=== PATIENT | female | born 1995 | race Caucasian/White ===

== ENCOUNTER 2018-08-12 16:43 | Emergency (ER) | payer BC ==
--- NOTE | 2018-08-12 17:25 | EDM.PDOC ---
ED HPI GENERAL MEDICAL PROBLEM - General Chief Complaint: Genitourinary Problem Stated Complaint: BLADDER INFECTION? [id number] Time Seen by Provider: 08/12/18 17:25 Source of Information: Reports: Patient History Limitations: Reports: No Limitations - History of Present Illness INITIAL COMMENTS - FREE TEXT/NARRATIVE: Patient comes emergency department today with complaints of a bladder infection. She has had burning and bloody urine. She has had painful urination. No back pain. No flank pain. No fever no chills. No nausea no vomiting. She has had a frequent infection approximately 5 in the last 5-6 years. She has never had a urological evaluation. She does notice that she typically gets a urinary tract infection following the ending of her. - Related Data Allergies Allergy/AdvReac Type Severity Reaction Status Date / Time No Known Allergies Allergy Verified 08/12/18 16:59 Home Meds: Home Meds LORazepam 1 mg PO Q6HR PRN 08/12/18 [History] Nitrofurantoin Monohyd/M-Cryst [Macrobid 100 mg Capsule] 100 mg PO BID #5 capsule 08/12/18 [Rx] Patient's Own Medication [Ptom] 1 tab PO DAILY 08/12/18 [History] Phenazopyridine HCl [Pyridium] 100 mg PO TID #9 tablet 08/12/18 [Rx] Past Medical History Psychiatric History: Reports: Anxiety - Past Surgical History HEENT Surgical History: Reports: Other (See Below) Other HEENT Surgeries/Procedures: wisdom teeth removal Social & Family History - Family History Family Medical History: Noncontributory - Tobacco Use Smoking Status *Q: Never Smoker Second Hand Smoke Exposure: No - Caffeine Use Caffeine Use: Reports: Soda - Recreational Drug Use Recreational Drug Use: No ED ROS GENERAL - Review of Systems Review Of Systems: ROS reveals no pertinent complaints other than HPI. ED EXAM, GI/ABD - Physical Exam Exam: See Below Exam Limited By: No Limitations General Appearance: Alert, WD/WN, No Apparent Distress Neck: Normal Inspection, Supple Respiratory/Chest: No Respiratory Distress, Lungs Clear, No Accessory Muscle Use Cardiovascular: Normal Peripheral Pulses, Regular Rate, Rhythm GI/Abdominal Exam: Normal Bowel Sounds, Soft, Non-Tender Back Exam: No: CVA Tenderness (L), CVA Tenderness (R) Extremities: Normal Inspection, Normal Range of Motion, Normal Capillary Refill Neurological: Alert, Oriented, Normal Cognition, No Motor/Sensory Deficits Psychiatric: Normal Affect, Normal Mood Skin Exam: Warm, Dry, Normal Color, No Rash Course - Vital Signs Last Recorded V/S: Last Vital Signs Temp 36.5 C 08/12/18 16:56 Pulse 81 08/12/18 16:56 Resp 16 08/12/18 16:56 BP 120/79 08/12/18 16:56 Pulse Ox 99 08/12/18 16:56 - Orders/Labs/Meds Orders: Active Orders 24 hr Category Date Time Status CULTURE URINE [RM] Stat Lab 08/12/18 16:47 Received Labs: Laboratory Tests 08/12/18 Range/Units 16:47 Urine Color Yellow (YELLOW) Urine Appearance Cloudy (CLEAR) Urine pH 6.5 (5.0-9.0) Ur Specific [place] 1.025 (1.005-1.030) Urine Protein Negative (NEGATIVE) Urine Glucose (UA) Negative (NEGATIVE) Urine Ketones Negative (NEGATIVE) Urine Occult Blood Moderate H (NEGATIVE) Urine Nitrite Negative (NEGATIVE) Urine Bilirubin Negative (NEGATIVE) Urine Urobilinogen 0.2 (0.2-1.0) mg/dL Ur Leukocyte Esterase Small H (NEGATIVE) Urine RBC >100 H /HPF Urine WBC 5-10 H (0-5/HPF) /HPF Ur Epithelial Cells Moderate H /HPF Urine Bacteria Moderate H (0-FEW/HPF) /HPF Urinalysis Comment - Re-Assessments/Exams Free Text/Narrative Re-Assessment/Exam: 08/12/18 18:18 Urine is clearly infectious. Did talk to her about following up with primary care due to the recurrent urinary tract infections. We'll treat her with Pyridium and Macrobid. Departure - Departure Time of Disposition: 17:31 Disposition: Home, Self-Care 01 Clinical Impression: UTI, Urinary tract infectious disease - Discharge Information Prescriptions: Nitrofurantoin Monohyd/M-Cryst [Macrobid 100 mg Capsule] 100 mg PO BID #5 capsule Phenazopyridine HCl [Pyridium] 100 mg PO TID #9 tablet Instructions: Urinary Tract Infection, Adult, [id number] Referrals: PCP,None [Primary Care Provider] - Forms: ED Department Discharge Additional Instructions: Pyridium, 1 tablet by mouth three times a day for the next 3 days. Macrobid, 1 tablet by mouth twice daily for the next 5 days. Push oral fluids over the next few days. Tylenol and or Ibuprofen for discomfort. Return to the ED if new or worsening symptoms. Consider follow up with primary care for your recurrent UTIs and possible further workup. - My Orders Last 24 Hours: My Active Orders 08/12/18 16:47 CULTURE URINE [RM] Stat - Assessment/Plan Last 24 Hours: My Active Orders 08/12/18 16:47 CULTURE URINE [RM] Stat Assessment:: UTI Plan: Pyridium, 1 tablet by mouth three times a day for the next 3 days. Macrobid, 1 tablet by mouth twice daily for the next 5 days. Push oral fluids over the next few days. Tylenol and or Ibuprofen for discomfort. Return to the ED if new or worsening symptoms. Consider follow up with primary care for your recurrent UTIs and possible further workup.
== END 2018-08-12 17:51 | disposition home or self-care (01) ==
LOC: DL.ED 16:43
DX: N39.0 Urinary tract infection, site not specified (principal)
CPT/HCPCS: 81001; 87086; 87088; 87186; 99283

== ENCOUNTER 2024-12-17 10:53 | Observation (INO) | payer OTHER ==
[2024-12-17] MEDS: Lactated Ringers 1,000 ML IV ONE (15:35)
[2024-12-17] MEDS: cefTRIAXone 1 GM Vial IVPUSH SCH (16:47)
[2024-12-17] MEDS: Acetaminophen 500 MG Tab PO PRN (16:53)
[2024-12-17] MEDS: metFORMIN 500 MG Tab PO SCH (20:54)
[2024-12-18] MEDS: Calcium Carbonate 500 MG Tab.Chew PO PRN (02:04)
[2024-12-18] MEDS: Lactated Ringers 1,000 ML IV ONE (02:50)
[2024-12-18] MEDS: Prenatal Multivitamin with Calcium/Folic Acid/Iron Tab PO SCH (08:56)
[2024-12-18] MEDS: cefTRIAXone 1 GM Vial IVPUSH SCH (08:56)
[2024-12-23 16:43] LABS: THYROGLOBULIN AB <1.5 IU/mL (0.0-4.0); THYROID PEROX AB 15.6 IU/mL (0.0-9.0)
[2024-12-24 05:46] LABS: THYROID STIM IMMUN <0.10 IU/L (<=0.54)
== END 2024-12-18 10:45 | disposition home or self-care (01) ==
LOC: DL.OBCHECK 10:53 → DL.MS 16:06
PROVIDERS: ADMIT Student in an Organized Health Care Education/Training Program; ATTEND Student in an Organized Health Care Education/Training Program
DX: O23.43 Unspecified infection of urinary tract in pregnancy, third trimester (principal); N39.0 Urinary tract infection, site not specified; O24.415 Gestational diabetes mellitus in pregnancy, controlled by oral hypoglycemic drugs; O99.283 Endocrine, nutritional and metabolic diseases complicating pregnancy, third trimester; E06.3 Autoimmune thyroiditis; E05.40 Thyrotoxicosis factitia without thyrotoxic crisis or storm; O26.13 Low weight gain in pregnancy, third trimester; Z3A.34 34 weeks gestation of pregnancy
CPT/HCPCS: 59025; 82947; 84445; 84480; 86376; 86800; 96361; 96374; 96376; A9270; G0378; J0696; J7120

== ENCOUNTER 2025-01-18 10:50 | Inpatient (IN) | payer OTHER ==
[2025-01-18] MEDS ORDERED: Sodium Chloride 0.9% 10 ML Syringe FLUSH PRN (12:12)
[2025-01-18] MEDS ORDERED: Carboprost Tromethamine 250 MCG/1 ML Amp IM PRN (12:12)
[2025-01-18] MEDS ORDERED: Acetaminophen 325 MG Tab PO PRN (12:12)
[2025-01-18] MEDS ORDERED: Promethazine 25 MG/ML SDV IM PRN (12:12)
[2025-01-18] MEDS ORDERED: Metoclopramide 10 MG/2 ML SDV IVPUSH PRN (12:12)
[2025-01-18] MEDS ORDERED: Methylergonovine 0.2 MG/1 ML Amp IM PRN (12:12)
[2025-01-18] MEDS ORDERED: Oxytocin/Lactated Ringers 30 UNIT/500 ML BAG IV SCH (12:15)
[2025-01-18] MEDS ORDERED: Oxytocin/Normal Saline 30 UNIT/500 ML BAG IV SCH (12:15)
[2025-01-18 12:23] LABS: HEMOGLOBIN 14.5 g/dL (12.0-16.0); MEAN CORPUSCULAR HEMOGLOBIN 29.2 pg (27.0-34.0); MEAN CORPUSCULAR HGB CONC 33.7 g/dL (33.0-35.0); MEAN CORPUSCULAR VOLUME 86.7 fL (80-100); RED BLOOD CELL COUNT 4.96 10^6/uL (4.2-5.4); WHITE BLOOD CELL COUNT,WBC 11.1 10^3/uL (5.0-10.0)
[2025-01-18 12:38] LABS: ALANINE AMINOTRANSFERASE,ALT 16 U/L (14-59); ASPARTATE AMNIOTRANSFERASE,AST 19 U/L (15-37); BLOOD UREA NITROGEN,BUN 10 mg/dL (7-18); CREATININE 0.92 mg/dL (0.55-1.02); LACTATE DEHYDROGENASE,LDH 157 U/L (81-234); URIC ACID 5.4 mg/dL (2.6-6.0)
[2025-01-18 12:40] LABS: ESTIMATED GFR 86 mL/min (>=60)
[2025-01-18] MEDS: Misoprostol 50 MCG (1/2 of 100 MCG) Tab SCH (13:17)
[2025-01-18 14:28] LABS: APPEARANCE,URINE CLEAR (CLEAR); BILIRUBIN,URINE NEGATIVE (NEGATIVE); COLOR,URINE YELLOW (YELLOW); GLUCOSE,URINE NEGATIVE (NEGATIVE); KETONES,URINE NEGATIVE (NEGATIVE); LEUKOCYTE ESTERASE,URINE SMALL (NEGATIVE); NITRITE,URINE NEGATIVE (NEGATIVE); OCCULT BLOOD,URINE TRACE-LYSED (NEGATIVE); PH,URINE 6.5 (5.0-9.0); PROTEIN,URINE NEGATIVE (NEGATIVE); UROBILINOGEN,URINE 0.2 mg/dL (0.2-1.0)
[2025-01-18 14:41] LABS: CREATININE,URINE RAND 17.43 mg/dL (No establ ref range)
[2025-01-18 14:43] LABS: PROTEIN,URINE RANDOM < 6.0 mg/dL (0.0-11.9)
[2025-01-18] MEDS: Labetalol 100 MG Tab PO SCH (14:53)
[2025-01-18] MEDS ORDERED: 50% Dextrose in Water 50 ML Syringe IVPUSH PRN ×3 (15:56→21:20)
[2025-01-18] MEDS ORDERED: Glucagon,Human Recombinant 1 MG Vial IM PRN ×3 (15:56→21:20)
[2025-01-18] MEDS ORDERED: Insulin Lispro Protamine/Lispro 75-25 100 Units/ML 10 ML Vial SUBCUT PRN (15:57)
[2025-01-18] MEDS ORDERED: Insulin Lispro 100 Units/ML 3 ML Vial SUBCUT SCH (18:00)
[2025-01-18] MEDS: Insulin Glarg,Human.Rec.Analog 100 Unit/ML 10 ML Vial SUBCUT SCH (21:31)
[2025-01-18] MEDS: Oxytocin/Normal Saline 30 UNIT/500 ML BAG IV SCH (22:01)
[2025-01-18] MEDS: Lactated Ringers 1,000 ML IV SCH (22:01)
[2025-01-18] MEDS: Calcium Carbonate 500 MG Tab.Chew PO PRN (22:42)
[2025-01-19] MEDS: Dextrose 5%-0.9% NaCl 1,000 ML IV SCH (02:41)
[2025-01-19] MEDS: Insulin Regular in 0.9 % NACL 100 ML IV SCH (02:42)
[2025-01-19] MEDS: Ondansetron 4 MG/2 ML SDV IVPUSH PRN (03:13)
[2025-01-19] MEDS: Labetalol 20 MG/4 ML Syringe ONE (04:00)
[2025-01-19] MEDS: Magnesium Sulf/Wat 4 GM/50 mL 4 GM in Premix Bag 50 BAG IV ONE (04:00)
[2025-01-19] MEDS: MAGNESIUM SULFATE IV SCH (04:20)
[2025-01-19] MEDS: Tranexamic Acid 1,000 MG in Sodium Chloride 0.9% 100 ML IV PRN (06:55)
[2025-01-19] MEDS: Misoprostol 100 MCG Tab RECTAL ONE (07:08)
[2025-01-19] MEDS: cefTRIAXone 1 GM Vial IVPUSH ONE (08:52)
[2025-01-19] MEDS: Levothyroxine 75 MCG Tab PO SCH (09:55)
[2025-01-19 12:01] LABS: HEMATOCRIT 31.9 % (37.0-47.0); HEMOGLOBIN 10.6 g/dL (12.0-16.0)
[2025-01-19] MEDS: Terbutaline 1 MG/ML SDV SUBCUT ONE (13:17)
[2025-01-19] MEDS: Lactated Ringers 1,000 ML IV ONE (13:17)
[2025-01-19] MEDS: Lidocaine 1% 30 ML SDV INJECT ONE (13:17)
[2025-01-19] MEDS: metFORMIN 500 MG Tab PO ONE (13:19)
[2025-01-19] MEDS: fentaNYL 100 MCG/2 ML SDV IVPUSH PRN (14:19)
[2025-01-19] MEDS: Labetalol 100 MG Tab PO SCH ×2 (15:59→20:53)
[2025-01-19] MEDS ORDERED: Aluminum Hydroxide/Magnesium Hydroxide/Simethicone Susp 30 ML Cup PO PRN (17:58)
[2025-01-19] MEDS ORDERED: Simethicone 80 MG Tab.Chew PO PRN (17:58)
[2025-01-19] MEDS ORDERED: Acetaminophen 325 MG Tab PO PRN (17:58)
[2025-01-19] MEDS ORDERED: Oxytocin 10 Units/1 ML SDV IM PRN (17:58)
[2025-01-19] MEDS ORDERED: Tranexamic Acid 1,000 MG in Sodium Chloride 0.9% 100 ML IV PRN (17:58)
[2025-01-19] MEDS ORDERED: Sodium Chloride 0.9% 10 ML Syringe FLUSH PRN (17:58)
[2025-01-19] MEDS ORDERED: Carboprost Tromethamine 250 MCG/1 ML Amp IM PRN (17:58)
[2025-01-19] MEDS ORDERED: Misoprostol 100 MCG Tab RECTAL PRN (17:58)
[2025-01-19] MEDS: Ferrous Sulfate 325 MG Tab PO SCH (18:02)
[2025-01-19] MEDS: Docusate Sodium 100 MG Cap PO PRN (20:52)
[2025-01-19] MEDS: Ibuprofen 800 MG Tab PO SCH (20:54)
[2025-01-19] MEDS: Witch Hazel Medicated Pads 100/Jar TOP PRN (20:56)
[2025-01-19] MEDS: Benzocaine/Menthol 20%-0.5% Spray 78 GM Cannister TOP PRN (20:57)
[2025-01-19] MEDS: Prenatal Multivitamin with Calcium/Folic Acid/Iron Tab PO SCH (21:03)
[2025-01-20] MEDS: Ibuprofen 800 MG Tab PO PRN (05:16)
[2025-01-20 06:23] LABS: HEMATOCRIT 31.9 % (37.0-47.0); HEMOGLOBIN 10.3 g/dL (12.0-16.0); MEAN CORPUSCULAR HEMOGLOBIN 29.3 pg (27.0-34.0); MEAN CORPUSCULAR HGB CONC 32.3 g/dL (33.0-35.0); MEAN CORPUSCULAR VOLUME 90.9 fL (80-100); RED BLOOD CELL COUNT 3.51 10^6/uL (4.2-5.4); WHITE BLOOD CELL COUNT,WBC 14.2 10^3/uL (5.0-10.0)
[2025-01-20 06:36] LABS: ANION GAP 9.9 mEq/L (7-13); BLOOD UREA NITROGEN,BUN 10 mg/dL (7-18); CALCIUM 8.4 mg/dL (8.5-10.1); CARBON DIOXIDE,CO2 29 mmol/L (21-32); CHLORIDE,CL 107 mmol/L (98-107); CREATININE 1.11 mg/dL (0.55-1.02); GLUCOSE RANDOM 82 mg/dL (70-99); POTASSIUM,K 4.9 mmol/L (3.5-5.1); SODIUM,NA 141 mmol/L (136-145)
[2025-01-20 06:48] LABS: ESTIMATED GFR 69 mL/min (>=60)
== END 2025-01-21 11:57 | disposition home or self-care (01) | DRG 807 ==
LOC: DL.OBCHECK 10:50 → DL.OB 12:19 → OBSVTOIN 01-19 06:14 → DL.MS 01-20 07:48
PROVIDERS: ADMIT Student in an Organized Health Care Education/Training Program; ATTEND Student in an Organized Health Care Education/Training Program
PROC: 0KQM0ZZ Repair Perineum Muscle, Open Approach (ICD-10-PCS; principal; 2025-01-19)
PROC: 10E0XZZ Delivery of Products of Conception, External Approach (ICD-10-PCS; principal; 2025-01-19)
PROC: 3E0R3BZ Introduction of Anesthetic Agent into Spinal Canal, Percutaneous Approach (ICD-10-PCS; principal; 2025-01-19)
DX: O24.424 Gestational diabetes mellitus in childbirth, insulin controlled (principal); Z37.0 Single live birth; O14.14 Severe pre-eclampsia complicating childbirth; Z3A.39 39 weeks gestation of pregnancy; Z79.84 Long term (current) use of oral hypoglycemic drugs; Z79.4 Long term (current) use of insulin; Z79.899 Other long term (current) drug therapy; O70.1 Second degree perineal laceration during delivery
CPT/HCPCS: 36415; 51701; 51702; 59025; 59409; 76819; 80048; 81003; 82565; 82570; 82947; 83615; 83735; 84156; 84450; 84460; 84520; 84550; 85014; 85018; 85027; 86850; 86900; 86901; A9270-GY; C1729; J0696; J1815-GY; J1920; J2405; J2590; J3010; J3475; J7042; J7120